=== PATIENT | female | born 2005 | race American Indian/Alaskan Native ===

== ENCOUNTER 2024-05-01 11:37 | Emergency (ER) | payer OTHER ==
[~2024-05-01] VITALS: Ht 167.6 cm; Wt 56.8 kg
[~2024-05-01 11:37] MED LIST: CEFTIN500 MG PO; FLAGYL500 MG PO; ZITHROMAX500 M2 PO
[2024-05-01 11:45] VITALS: BP 111/78; TEMP 97.5
[2024-05-01] MEDS ORDERED: LORazepam 0.5 MG TAB PO ONE (12:45)
[2024-05-01] MEDS ORDERED: BACTRIM DS 8001 TAB PO (13:42)
[2024-05-01 14:13] VITALS: PULSE 72
== END 2024-05-01 13:50 | disposition home or self-care (01) ==
LOC: COL.ER 11:37
DX: L02.411 Cutaneous abscess of right axilla (principal); F17.290 Nicotine dependence, other tobacco product, uncomplicated; Z88.0 Allergy status to penicillin; Z88.1 Allergy status to other antibiotic agents